=== PATIENT | female | born 1975 | race Hispanic/Latino ===

== ENCOUNTER 2023-05-08 06:57 | Day surgery (SDC) | payer BC ==
[2023-05-05 10:10] LABS: HEMATOCRIT 40.2 % (36-48); MEAN CORPUSCULAR HEMOGLOBIN 25.8 pg (27.0-33.0); MEAN CORPUSCULAR HGB CONC 31.3 g/dL (32.0-36.0); MEAN CORPUSCULAR VOLUME 82.4 fL (79-99); RED BLOOD CELL COUNT(AUTO) 4.88 MIL/uL (4.00-5.50); RED CELL DISTRIBUTION WIDTH 14.5 % (11.0-15.5); WHITE BLOOD COUNT (AUTO) 8.3 K/uL (4.8-10.8)
[2023-05-05 10:11] VITALS: BP 132/63; PULSE 73; RESP 18
[2023-05-08] VITALS (19 sets, daily range): BP systolic 104–134; BP diastolic 53–81; PULSE 57–76; RESP 12–17
[~2023-05-08] VITALS: Ht 154.9 cm; Wt 88.4 kg
[~2023-05-08 06:57] MED LIST: CELE-84 PO; METF-446 PO; TIZA2CAP9 PO
[2023-05-08] MEDS ORDERED: 0.9%NACL 1000ML 1,000 ML IV ONE (07:18)
[2023-05-08] MEDS ORDERED: CEFAZOLIN SODIUM 1 GM VIAL ONE (07:18)
[2023-05-08] MEDS ORDERED: BUPIVACAINE/PF 0.5% 30ML VIAL ONE (07:51)
[2023-05-08] MEDS ORDERED: PROPOFOL 10 MG/ML 20ML VIAL IV ONE (07:54)
[2023-05-08] MEDS ORDERED: LIDOCAINE PF 100MG/5ML (2%) SYRINGE 5ML ONE (07:54)
[2023-05-08] MEDS ORDERED: MIDAZOLAM HCL 1 MG/ML 2ML VIAL ONE (07:54)
[2023-05-08] MEDS ORDERED: FENTANYL CITRATE PF 50 MCG/1 ML 2ML VIAL ONE (07:54)
[2023-05-08] MEDS ORDERED: CEFAZOLIN SODIUM 1 GM VIAL IVPB ONE (08:09)
[2023-05-08] MEDS ORDERED: BUPIVACAINE/PF 0.5% 30ML VIAL INJ ONE (08:13)
[2023-05-08] MEDS ORDERED: PHENYLEPHRINE HCL 10 MG/ML 1ML VIAL IV ONE (08:25)
[2023-05-08] MEDS ORDERED: KETOROLAC 30MG VIAL (30MG/ML) ONE ×2 (08:40→08:42)
[2023-05-08] MEDS ORDERED: ONDANSETRON 4MG INJ ONE ×2 (08:40→10:01)
[2023-05-08 16:20] LABS: SODIUM SERUM 136 mmol/L (136-145)
[2023-05-08 16:21] LABS: CHLORIDE 102 mmol/L (101-111); CREATININE 0.6 mg/dL (0.5-1.5); GLOMERULAR FILTR. RATE CALC 110 mL/min (>90); GLUCOSE,RANDOM 150 mg/dL (70-105); POTASSIUM 3.4 mmol/L (3.5-5.1); UREA NITROGEN, BLOOD 5 mg/dL (7-18)
== END 2023-05-08 11:27 | disposition home or self-care (01) ==
LOC: DAH 06:57
PROVIDERS: ATTEND Surgery
DX: D17.1 Benign lipomatous neoplasm of skin and subcutaneous tissue of trunk (principal); Z20.822 Contact with and (suspected) exposure to COVID-19; K21.9 Gastro-esophageal reflux disease without esophagitis; E11.9 Type 2 diabetes mellitus without complications; E66.9 Obesity, unspecified; M06.9 Rheumatoid arthritis, unspecified; Z98.890 Other specified postprocedural states; Z79.899 Other long term (current) drug therapy; Z90.49 Acquired absence of other specified parts of digestive tract; Z98.51 Tubal ligation status; Z68.36 Body mass index [BMI] 36.0-36.9, adult; Z79.84 Long term (current) use of oral hypoglycemic drugs
CPT/HCPCS: 87426; 36415 ×2; 84703; 85027; 21931; 80048; 82948 ×2; A6260; A4663; A4452; J3010; J0690 ×2; J7030; J2001; J2250; J2704; J2405 ×2; J1885 ×2; J3490 ×2; J2371; A4215; A4223; A4222; A4221

== ENCOUNTER 2023-11-16 16:58 | Emergency (ER) | payer BC ==
[~2023-11-16] VITALS: Ht 154.9 cm; Wt 88.0 kg
[~2023-11-16 16:58] MED LIST changes: +CELE-125 PO; -CELE-84 PO
[2023-11-16 17:46] LABS: BASOPHILS # (AUTO) 0.03 K/uL (0.00-0.20); BASOPHILS % (AUTO) 0.2 % (0.0-5.0); EOSINOPHILS # (AUTO) 0.13 K/uL (0.00-0.70); EOSINOPHILS % (AUTO) 1.1 % (0.0-8.0); HEMATOCRIT 38.8 % (36-48); IMMATURE GRANULOCYTE ABSOLUTE 0.05 K/uL (0-1); LYMPHOCYTES # (AUTO) 3.3 K/uL (1.0-4.8); LYMPHOCYTES % (AUTO) 26.7 % (21.0-51.0); MEAN CORPUSCULAR HEMOGLOBIN 24.9 pg (27.0-33.0); MEAN CORPUSCULAR HGB CONC 31.7 g/dL (32.0-36.0); MEAN CORPUSCULAR VOLUME 78.5 fL (79-99); MONOCYTES # (AUTO) 0.7 K/uL (0.1-1.0); MONOCYTES % (AUTO) 5.5 % (3.0-13.0); NEUTROPHILS # (AUTO) 8.1 K/uL (1.8-7.7); NEUTROPHILS % (AUTO) 66.1 % (40.0-77.0); PLATELET COUNT (AUTO) 333 K/uL (130-400); RED BLOOD CELL COUNT(AUTO) 4.94 MIL/uL (4.00-5.50); RED CELL DISTRIBUTION WIDTH 15.2 % (11.0-15.5); WHITE BLOOD COUNT (AUTO) 12.3 K/uL (4.8-10.8)
[2023-11-16 17:49] LABS: APPEARANCE,URINE CLEAR (CLEAR); BILIRUBIN,URINE NEGATIVE (NEGATIVE); COLOR,URINE COLORLESS (YELLOW); GLUCOSE, URINE (UA) NEGATIVE (NEGATIVE); KETONES,URINE NEGATIVE (NEGATIVE); LEUKOCYTE ESTERASE ,URINE 75 Leu/uL (NEGATIVE); NITRATE,URINE NEGATIVE (NEGATIVE); OCCULT BLOOD,URINE NEGATIVE (NEGATIVE); PROTEIN,URINE NEGATIVE (NEGATIVE); UROBILINOGEN,URINE 0.2 mg/dL (0.2-1.0)
[2023-11-16 17:51] LABS: ADD UA MICROSCOPIC YES
[2023-11-16 18:02] LABS: CREATININE 0.7 mg/dL (0.5-1.5); POTASSIUM 3.4 mmol/L (3.5-5.1)
[2023-11-16 18:03] LABS: BACTERIA,URINE RARE /HPF (None Seen); RBC,URINE 0-1 /HPF (0-1); SQUAMOUS EPITHELIAL CELL,UR RARE /HPF (0-2); WBC,URINE 0-1 /HPF (0-1)
[2023-11-16 18:06] LABS: ALBUMIN 3.9 g/dL (3.5-5.0); BILIRUBIN,TOTAL 0.6 mg/dL (0.2-1.0); TOTAL PROTEIN, SERUM 8.4 g/dL (6.0-8.3)
[2023-11-16] MEDS ORDERED: POLY17PO4 PO (23:21)
[2023-11-16] MEDS ORDERED: DOCU-116 PO (23:21)
[2023-11-17] MEDS: LACTATED RINGERS 1000ML 1,000 ML IV ONE (00:15)
[2023-11-17] MEDS: ONDANSETRON 4MG INJ IVP ONE (00:15)
[2023-11-17] MEDS: KETOROLAC 30MG VIAL (30MG/ML) IVP ONE (00:15)
[2023-11-17 01:20] VITALS: BP 144/88; PULSE 82; RESP 16; O2SAT 99
== END 2023-11-17 01:23 | disposition home or self-care (01) ==
LOC: EDH 16:58
DX: R10.31 Right lower quadrant pain (principal); D72.829 Elevated white blood cell count, unspecified; E87.6 Hypokalemia; R74.8 Abnormal levels of other serum enzymes; R74.01 Elevation of levels of liver transaminase levels; K76.0 Fatty (change of) liver, not elsewhere classified; K59.00 Constipation, unspecified; E66.9 Obesity, unspecified; E11.9 Type 2 diabetes mellitus without complications; Z79.84 Long term (current) use of oral hypoglycemic drugs; Z90.49 Acquired absence of other specified parts of digestive tract; Z98.51 Tubal ligation status; Z68.36 Body mass index [BMI] 36.0-36.9, adult
CPT/HCPCS: 99284; 74176; 80053; 83690; 85025; 87088; 81001; 36415; 96374; 96361; 96375; J7120; J2405; J1885